=== PATIENT | female | born 1990 | race Caucasian/White ===

== ENCOUNTER 2018-07-28 18:31 | Emergency (ER) | payer SELFPAY ==
[~2018-07-28] VITALS: Ht 157.5 cm; Wt 82.0 kg
[2018-07-28] MEDS ORDERED: MORPHINE SULFATE 4 MG/ML CPJ (NOT FOR IM USE) IV STA (18:50)
[2018-07-28] MEDS ORDERED: SODIUM CHLORIDE 0.9% 1,000 ML IV ONE ×2 (18:50→20:10)
[2018-07-28] MEDS ORDERED: ONDANSETRON HCL 4MG/2ML INJ IV STA (18:50)
[2018-07-28 19:47] LABS: BASOPHILS % 0.3 % (0.0-2.0); EOSINOPHILS % 0.7 % (0.0-5.0); HEMATOCRIT. 39.3 % (36.0-48.0); HEMOGLOBIN. 13.3 g/dL (12.0-16.0); MEAN CORPUSCULAR HEMOGLOBIN 29.7 pg (28.0-32.0); MEAN CORPUSCULAR VOLUME 87.5 fL (81.0-99.0); MEAN PLATELET VOLUME 8.6 fl (7.4-10.4); MONOCYTES % 6.6 % (2.0-8.0); NEUTROPHILS % 75.4 % (40.0-76.0); PLATELET 397 x1000/uL (130-400); RED BLOOD CELL COUNT 4.49 mill/uL (4.2-5.4); RED CELL DISTRIBUTION WIDTH 14.2 % (11.6-14.6)
[2018-07-28 19:49] LABS: CHLORIDE 104 mEq/L (98-107)
[2018-07-28 20:10] LABS: HCG SCREEN NEGATIVE
[2018-07-28] MEDS ORDERED: KETOROLAC 30MG/ML VIAL IV ONE (21:45)
[2018-07-28 21:53] LABS: CLARITY URINE CLOUDY (CLEAR); COLOR URINE DARK YELLOW (YELLOW); KETONES URINE 3+ (NEGATIVE); LEUKOCYTE ESTERASE URINE 2+ (NEGATIVE); NITRITE URINE NEGATIVE (NEGATIVE); OCCULT BLOOD URINE 3+ (NEGATIVE); PH URINE 5.5 (4.5-8.0); PROTEIN URINE TRACE (NEGATIVE); SPECIFIC GRAVITY URINE 1.032 (1.005-1.030)
[2018-07-28] MEDS ORDERED: CEFTRIAXONE 1 G PREMIX 50 ML IV ONE (22:00)
[2018-07-28 23:50] VITALS: BP 110/58
== END 2018-07-28 23:50 | disposition home or self-care (01) ==
LOC: ER 18:31
DX: N39.0 Urinary tract infection, site not specified (principal); R03.0 Elevated blood-pressure reading, without diagnosis of hypertension
CPT/HCPCS: 36415; 74176; 76830; 76856; 80053; 81003; 83690; 84703; 85025; 96365; 96375; 99285; J0696; J1885; J2270; J2405; J7030; X7700; Z7610

== ENCOUNTER 2018-08-28 18:17 | Emergency (ER) | payer MEDICAID ==
[~2018-08-28] VITALS: Ht 160 cm; Wt 85.0 kg
[2018-08-28] MEDS ORDERED: ACETAMINOPHEN WITH CODEINE 300/30MG TABLET PO ONE (20:30)
[2018-08-28] MEDS ORDERED: KETOROLAC 60MG/2ML VIAL IM ONE (20:30)
[2018-08-28 20:44] VITALS: BP 112/68
== END 2018-08-28 20:55 | disposition home or self-care (01) ==
LOC: ER 18:17
DX: M54.5 Low back pain (principal); M47.897 Other spondylosis, lumbosacral region; M54.10 Radiculopathy, site unspecified; G89.29 Other chronic pain; J45.909 Unspecified asthma, uncomplicated
CPT/HCPCS: 81025; 96372; 99283; J1885

== ENCOUNTER 2018-09-30 06:15 | Emergency (ER) | payer SELFPAY ==
[~2018-09-30] VITALS: Ht 160 cm; Wt 86.0 kg
[2018-09-30] MEDS ORDERED: KETOROLAC 30MG/ML VIAL IV STA (08:29)
[2018-09-30] MEDS ORDERED: SODIUM CHLORIDE 0.9% 1,000 ML IV ONE (08:29)
[2018-09-30] MEDS ORDERED: ONDANSETRON HCL 4MG/2ML INJ IV STA (08:29)
[2018-09-30] MEDS ORDERED: FAMOTIDINE 20MG/2ML VIAL IV ONE (08:30)
[2018-09-30 09:06] LABS: HEMATOCRIT. 36.9 % (36.0-48.0); HEMOGLOBIN. 12.4 g/dL (12.0-16.0); MEAN CORPUSCULAR HEMOGLOBIN 30.1 pg (28.0-32.0); MEAN CORPUSCULAR VOLUME 89.2 fL (81.0-99.0); MEAN PLATELET VOLUME 8.2 fl (7.4-10.4); PLATELET 359 x1000/uL (130-400); RED BLOOD CELL COUNT 4.14 mill/uL (4.2-5.4); RED CELL DISTRIBUTION WIDTH 14.2 % (11.6-14.6)
[2018-09-30 09:20] LABS: HCG SCREEN NEGATIVE
[2018-09-30 09:23] LABS: CHLORIDE 107 mEq/L (98-107)
[2018-09-30 09:49] LABS: PLATELET ESTIMATE NORMAL
[2018-09-30 11:44] VITALS: BP 93/52
== END 2018-09-30 11:49 | disposition home or self-care (01) ==
LOC: ER 08:25
DX: R10.13 Epigastric pain (principal); R11.2 Nausea with vomiting, unspecified
CPT/HCPCS: 36415; 80053; 84703; 85025; 96361; 96374; 96375; 99284; J1885; J2405; J3490; J7030